=== PATIENT | female | born 1960 | race Caucasian/White ===

== ENCOUNTER 2020-11-12 15:21 | Emergency (ER) | payer MEDICAID ==
[~2020-11-12 15:21] MED LIST: ACID1GRA3 PO; AMIO200T42 PO; ASPI81TA45 PO; ATOR40TA PO; Albuterol-Ipratropium Mdi INH; CHLO25TA PO; CHOL239. PO; CLON0.1T2 PO; DEXL60CA2 PO; DIAZ10TA4 PO; FURO80TA77 PO; LEVO100T PO; LEVO100T5 PO; LOPE-114 PO; METO50TA82 PO; POTA10TA31 PO; PREG200C PO; RALO60TA PO; SERT50TA28 PO
--- NOTE | 2020-11-12 15:31 | NUR ---
page code ruben @ [id number]
--- NOTE | 2020-11-12 15:47 | NUR ---
Note undone in EDM - 11/12/20 at 1634 by [email or web address] PATIENT BIB EMS FROM A RV [place] THE [place] FOR [place] CALL (SICK). PT BECAME UNRESPONSIVE WITH A PULSE AND WAS BAGGED AT 75%. MD MCFARLANE CAME IN AND INTUBATED 8.0 TUBE. PT LOST PULSES AT 1350, CPR STARTED. SEE CODE SHEET. TIME OF 1542 BY MD MCFARLANE.
[2020-11-12] MEDS ORDERED: EPINEPHRINE SYRINGE 0.1 MG/ML, 10ML ONE (16:02)
[2020-11-12] MEDS ORDERED: SODIUM BICARB 8.4%, 50ML SYRINGE ONE (16:02)
--- NOTE | 2020-11-12 16:24 | NUR ---
TALKED TO ZAIN SUMMERS AT [phone] NEXT OF KIN
[2020-11-12] MEDS ORDERED: EPINEPHRINE 5 MG in SODIUM CHLORIDE 0.9% 245 ML IV ONE (16:30)
--- NOTE | 2020-11-12 16:32 | NUR ---
PATIENT BIB EMS FROM A [facility] THE [place] FOR A CALL (SICK). PT BECAME UNRESPONSIVE WITH A PULSE AND WAS BAGGED AT 75%. MD MCFARLANE CAME IN AND INTUBATED 8.0 TUBE. PT LOST PULSES AT 1550, CPR STARTED. SEE CODE SHEET. TIME OF 1542 BY MD MCFARLANE.
== END 2020-11-12 16:42 | disposition expired ==
LOC: MERGE 15:21 → EDBD 15:21 → EDSEX 15:21 → ED 16:36
DX: J96.01 Acute respiratory failure with hypoxia (principal); I46.9 Cardiac arrest, cause unspecified; K92.2 Gastrointestinal hemorrhage, unspecified
CPT/HCPCS: 92950; 99291